=== PATIENT | male | born 1965 | race African-American/Black ===

== ENCOUNTER 2017-03-06 10:11 | Outpatient (CLI) | payer OTHER | END 2017-03-06 10:12 | disposition home or self-care (01) | DX: G47.10 Hypersomnia, unspecified (principal); G47.8 Other sleep disorders; R06.83 Snoring ==

== ENCOUNTER 2017-04-10 21:30 | Outpatient (CLI) | payer OTHER | END 2017-04-10 21:31 | disposition home or self-care (01) | LOC: SC 21:30 | PROVIDERS: ATTEND Internal Medicine Pulmonary Disease | DX: G47.10 Hypersomnia, unspecified (principal); R06.83 Snoring | CPT/HCPCS: 95810 ==

== ENCOUNTER 2017-05-12 13:48 | Outpatient (CLI) | payer OTHER | END 2017-05-12 13:49 | disposition home or self-care (01) | LOC: SC 13:48 | PROVIDERS: ATTEND Nurse Practitioner Family | DX: G47.10 Hypersomnia, unspecified (principal); R06.83 Snoring | CPT/HCPCS: 99212; 99213 ==

== ENCOUNTER 2021-11-27 08:41 | Outpatient (CLI) | payer OTHER ==
--- NOTE | 2021-11-27 09:46 | MRI Report ---
PROCEDURE: Knee RT W/O INDICATIONS: KNEE PAIN TECHNIQUE: Noncontrast sagittal PD fast spin echo and T2 fast spin echo with fat saturation, sagittal 3-D gradie nt sequence with fat saturation; coronal T1 spin echo and PD fast spin echo with fat saturation, and axial PD fast spin echo with fat saturation through the knee. COMPARISON: None. FINDINGS: Image quality: Excellent. Menisci: The medial and lateral menisci demonstrate normal morphology and internal signal. The meni scal root ligaments appear intact. Cruciate ligaments: The anterior and posterior cruciate ligaments appear intact. Medial structures: Very low-grade MCL sprain is likely present. The posterior oblique ligament, semi membranosus tendon insertions, and oblique popliteal ligament, and meniscocapsular junction appear in tact. Visualized portions of the pes anserinus tendons appear normal. No abnormal bursal fluid. Lateral structures: Low grade LCL sprain/partial thickness tear is noted near its femoral insertion. The long and short heads of the biceps femoris tendon appear intact. The popliteus tendon appears no rmal; the popliteofibular ligament appears intact. The posterosuperior and anteroinferior popliteome niscal fascicles appear intact. The arcuate and fabellofibular ligaments appear intact, around the l ateral inferior geniculate artery. Iliotibial band appears normal. Anterior structures: Distal quadriceps tendon is intact. There is tendinosis and moderate grade parti al-thickness tear involving proximal patella tendon at its insertion on inferior patella with overlyi ng soft tissue edema and swelling. Patellar alignment is normal. No femoral trochlear dysplasia or v entral trochlear prominence. No edema in the infrapatellar fat pad. Bones and cartilage: No bone marrow contusions or fractures. The cartilage of the medial and latera l femorotibial compartments, as well as the patellofemoral compartment, appears normal in thickness. Joint space: There is physiologic knee joint fluid. There is a small popliteal cyst. Normal appearin g synovial plicae are incidentally noted. IMPRESSION: 1. Tendinosis and low to moderate grade intrasubstance partial thickness tear involving proximal kamara lla tendon at its inferior patella insertion. Distal quadriceps tendon is intact. 2. No evidence of focal meniscal tear. 3. Cruciate ligaments are intact. Very low-grade MCL sprain and low-grade LCL sprain. 4. No marrow edema. No fracture or dislocation. Small popliteal cyst. Reviewed by: Carroll Lucero MD on 11/27/2021 9:45 AM PST Approved by: Carroll Lucero MD on 11/27/2021 9:45 AM PST Station ID: [id number]
== END 2021-11-27 08:42 | disposition home or self-care (01) ==
LOC: DI 08:41
PROVIDERS: ATTEND Family Medicine
DX: S76.121A Laceration of right quadriceps muscle, fascia and tendon, initial encounter (principal); S83.421A Sprain of lateral collateral ligament of right knee, initial encounter; S83.411A Sprain of medial collateral ligament of right knee, initial encounter; M71.21 Synovial cyst of popliteal space [Baker], right knee